=== PATIENT | male | born 1995 | race Caucasian/White ===

== ENCOUNTER 2023-06-11 13:18 | Emergency (ER) | payer MEDICAID, SELFPAY ==
[2023-06-11 13:19] VITALS: BP 104/63; PULSE 116; RESP 18; TEMP 36; O2SAT 98; BMI 27.3
--- NOTE | 2023-06-11 13:38 | US_ITS ---
STUDY: SCROTUM ULTRASOUND REASON FOR EXAM: Male, 28 years old. Pain -- right side TECHNIQUE: Ultrasound evaluation of the scrotum was performed with color Doppler and static sinha-scale imaging. COMPARISON: None. FINDINGS: RIGHT TESTICLE INTRATESTICULAR: There is a normal size of the right testicle. The right testicle measures 5 cm x 2.7 x 2.9 cm. There is a homogenous echotexture. There is normal arterial and normal venous vascularity. There is no demonstrated right testicular mass or cyst. EXTRATESTICULAR: The epididymis is normal in size. The epididymis head measures 0.9 cm x 0.7 cm x 1.1 cm. There is normal vascularity of the epididymis. There is a well-defined cystic structure within the epididymis, without internal echoes, consistent with an epididymal cyst. This measures 3 mm x 3 mm x 4 mm. There is no demonstrated hydrocele. There is no demonstrated varicocele. There is no demonstrated extratesticular mass or cyst. LEFT TESTICLE INTRATESTICULAR: There is a normal size of the left testicle. The left testicle measures 4.6 cm x 3.1 cm x 2.8 cm. There is a homogenous echotexture. There is normal arterial and normal venous vascularity. There is no demonstrated left testicular mass or cyst. EXTRATESTICULAR: The epididymis is normal in size. The epididymis head measures 1.8 cm x 2.3 cm x 1.8 cm. There is normal vascularity of the epididymis. There is a well-defined cystic structure within the epididymis, without internal echoes, consistent with an epididymal cyst. This measures 1.4 cm x 1.7 cm x 1.4 cm. There is no demonstrated hydrocele. There is no demonstrated varicocele. There is no demonstrated extratesticular mass or cyst. US/Testicular with Arterial Flow IMPRESSION: Bilateral epididymal cysts more prominent on the left side. Electronically Signed: Marcial Vo MD at 15:03 EDT ,
[2023-06-11] MEDS: Ibuprofen 600 MG Tablet PO (13:49)
--- NOTE | 2023-06-11 13:50 | EDS_ITS ---
HPI History of Present Illness Chief Complaint: Male Pain/Injury Informant: patient Narrative Narrative: Recurrent nontraumatic right scrotal pain worsening over the weekend. States difficulty urinating. No penile discharge. Ibuprofen taken over 6 hours ago. History of chlamydia in the past. He sexually active with a single partner. He states on and off symptoms for 2 years states never had a evaluate by healthcare provider. Patient had to leave work due to symptoms. Prior similar symptoms: Yes PFSH PFSH Medical History no medical history Home Medications etodolac 300 mg capsule 300 mg PO TIDCM ##30 02/04/16 [Rx Last Taken Unknown] ciprofloxacin HCl 500 mg tablet 500 mg PO BID #14 TABLETS 06/11/23 [Rx Last Taken Unknown] ibuprofen 600 mg tablet 600 mg PO Q6H PRN PRN pain #20 TABLETS 06/11/23 [Rx Last Taken Unknown] Allergy/AdvReac Type Severity Reaction Status Date / Time methylphenidate HCl AdvReac Other Verified 06/11/23 13:19 [From Ritalin] Social History Smoking Status: Current every day smoker tobacco type: cigarettes ROS ROS ED Constitutional Constitutional ED: Denies chills, fever(s) or sweats Eyes Eyes: Denies change in vision ENT ENT ED: Denies dysphagia or sore throat Cardiovascular Cardiovascular: Denies chest pain, leg edema, palpitations or racing heartbeat Respiratory/Chest Respiratory/Chest: Denies cough, dyspnea or dyspnea on exertion Gastrointestinal Gastrointestinal: Denies abdominal pain, diarrhea, nausea or vomiting Genitourinary Genitourinary ED: Reports other Details: Right scrotal pain ; Denies dysuria, hematuria or urinary frequency Musculoskeletal Musculoskeletal: Denies back pain, extremity pain or neck pain Integumentary Denies rash or wounds Neurologic Neurologic: Denies headache(s), paresthesias or weakness EXAM Physical Exam Const Vital Signs: 06/11/23 13:19 Temperature 96.8 F L Temperature Source Temporal Pulse Rate 116 H Respiratory Rate 18 Blood Pressure 104/63 Blood Pressure Mean 76 Pulse Ox 98 Oxygen Delivery Method Room Air Positive well nourished and well developed Constitutional Narrative: Iron dust face hands and legs, from occupational exposure General Appearance ED: well developed and NAD HEENT Reports moist mucous membranes normocephalic and atraumatic Eyes PERRL, EOMs intact bilaterally and conjunctivae normal General Eye ED: Yes normal appearance of both eyes Neck no lymphadenopathy and supple General: Negative for tenderness Chest Wall Chest: Negative for tenderness Resp normal respiratory effort and normal air movement Effort and Inspection: symmetric chest movement; Negative for respiratory distress Cardio regular rate, regular rhythm and no murmurs Peripheral Pulses: pulses 2+ throughout GI normal to inspection, nondistended, normoactive bowel sounds and non-tender Palpation: Negative for guarding or rebound tenderness present Narrative: No scrotal swelling tenderness at the right epididymis, no ulcerations. No hernias palpated. Back/Spine no CVA tenderness and no thoracic nor lumbar tenderness Extremity normal to inspection General Extremety ED: Negative for edema or tenderness General Extremity: Negative for edema Neuro oriented x3 and no sensory deficits noted Sensorium / Orientation: awake and alert Skin no rashes or lesions noted and no wounds MDM MDM MDM Narrative Medical decision making narrative: Interventions / MDM: Differential diagnosis: Right epididymitis, epididymal cysts, UTI, STDs Diagnosis considered but do not suspect: No clinical torsion, no hernia of the groin. My EKG interpretation: N/A Imaging independently reviewed and interpreted by myself: Testicular ultrasound per radiology bilateral epididymal cysts. Normal scrotum no hydrocele or varicocele. External documents reviewed: N/A Test considered but not ordered:N/A ED course: Clinical epididymitis. Sexually active single partner. Urine obtained no signs of infection urine culture sent. GC chlamydia pending. Ultrasound ordered noting bilateral epididymal cysts. Normal vascular flow with no increased vascularity however clinically has right-sided epididymitis. He is covered with Cipro first dose in the ED. He is given follow-up with urology. Scrotal support discussed. Continue NSAIDs. All questions answered. Re-evaluation: stable Disposition discussed with patient/family/significant other: Patient Case discussed with consulting clinician: N/A This note was generated with [employer] dictation software. It may contain incorrect words, spelling, and punctuation that were not noted in checking the note before signing. Lab Data Attestation: I reviewed the patient's lab results. Labs: Laboratory Results - last 24 hr 06/11/23 13:55 Urine Color Yellow Urine Clarity Sl. Cloudy Urine pH 5.0 Ur Specific [place] 1.030 Urine Protein 30 H Urine Glucose (UA) Normal Urine Ketones 15 H Urine Occult Blood Negative Urine Nitrite Negative Urine Bilirubin 1 H Urine Urobilinogen 4 H Ur Leukocyte Esterase 25 H Urine RBC 0 SEEN Urine WBC 5-10 SEEN Ur Squamous Epith Cells 0 SEEN Urine Bacteria 0 SEEN Hyaline Casts 25-50 SEEN Urine Mucus 0 SEEN Radiography Diagnostic Testing: Clinical Impression(s) from Imaging Studies Testicular Ultrasound 06/11/23 13:38 IMPRESSION: Bilateral epididymal cysts more prominent on the left side. Electronically Signed: Marcial Vo MD at 15:03 EDT , Discharge Plan Triage Chief Complaint: Male Pain/Injury ED Provider: Gilson Hopkins Dx/Rx/DC Orders Clinical Impression: Cyst of epididymis determined by ultrasound, Acute UTI (urinary tract infection), Epididymitis, right Instructions: Urinary Tract Infections in Men, ED Epididymitis Prescriptions: New ciprofloxacin HCl [ciprofloxacin HCl] 500 mg tablet 500 mg PO BID Qty: 14 0RF ibuprofen 600 mg tablet 600 mg PO Q6H PRN PRN (Reason: pain) Qty: 20 0RF No Action etodolac 300 MG capsule 300 mg PO TIDCM Qty: 30 0RF Rx Instructions: with food Stand Alone Forms: ED Work / School Excuse Primary Care Provider: Care Physician,No Primary Referrals: Rudy Ramon MD [Med Staff - Active Staff] - 1-2 Weeks Care Physician,No Primary [Primary Care Provider] - Activity Restrictions/Additional Instructions: Urine with UTI culture pending. GC chlamydia pending. Ultrasound notes bilateral epididymal cyst. Normal scrotum. clinical epididymitis on the right side. Take antibiotic as prescribed. Use anti-inflammatories as prescribed. Follow-up with urology. Disposition Disposition: Home, Self Care Discharge Date/Time: 06/11/23 15:31
[2023-06-11 14:01] LABS: Bacteria 0 SEEN /hpf (None Seen); Mucous, Urine 0 SEEN /hpf (<or=2+); Red Blood Cells-Urine 0 SEEN /hpf (0-5); Squamous Epithelial Cells - UA 0 SEEN /hpf (0-5)
[2023-06-11 14:05] LABS: Color, Urine Yellow (Yellow); Glucose, Dipstick Normal (Normal); Ketone-Dipstick 15 mg/dl (Negative); Leukocyte Esterase-Dipstick 25 /ul (Negative); Nitrite-Dipstick Negative (Negative); Occult Blood-Urine Negative /ul (Negative); Protein-Dipstick 30 mg/dl (Negative); Urine Clarity Sl. Cloudy (Clear); Urine Urobilinogen 4 mg/dl (Normal)
[2023-06-11 14:15] LABS: Urine Bilirubin Dipstick 1 mg/dL (Negative)
[2023-06-11 14:20] LABS: Hyaline Cast 25-50 SEEN /lpf (0-5); White Blood Cells 5-10 SEEN /hpf (0-5)
[2023-06-11] MEDS: Ciprofloxacin 500 MG Tablet PO (15:22)
== END 2023-06-11 15:31 | disposition home or self-care (01) ==
PROVIDERS: Emergency Provider Emergency Medicine; Visit Provider Emergency Medicine
DX: N45.1 Epididymitis (principal); N39.0 Urinary tract infection, site not specified; F17.210 Nicotine dependence, cigarettes, uncomplicated; N50.3 Cyst of epididymis; Z87.438 Personal history of other diseases of male genital organs
CPT/HCPCS: 76870; 81001; 87086; 87491; 87591; 93976; 99283

== ENCOUNTER 2024-11-27 15:00 | Outpatient (RCR) | payer MEDICAID, SELFPAY ==
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
--- NOTE | 2025-02-02 09:48 | HP.SP.DC_ITS ---
ST Discharge Summary Discharged: Discharge: Dion Morris is discharged from speech therapy at [facility] as of February 02, 2025. He was initially evaluated on 11/17/24 for severe cognitive deficits following a traumatic brain injury. He was treated for 1 visit on 11/25/24 then all visits were cancelled due to medical issues that needed resolved prior to therapy. As no further visits have been scheduled, he is discharged. Please see report and daily note for complete details. Thank you for allowing me to participate in the care of this patient.
== END 2024-11-27 19:00 | disposition home or self-care (01) ==
LOC: OT 15:00
DX: S06.5XAD Traumatic subdural hemorrhage with loss of consciousness status unknown, subsequent encounter (principal)
CPT/HCPCS: 92507; 97110; 97163; 97166